=== PATIENT | male | born 1955 | race Caucasian/White ===

== ENCOUNTER 2017-08-02 09:00 | Day surgery (SDC) | payer OTHER ==
[~2017-08-02] VITALS: Ht 188 cm; Wt 77.4 kg
[~2017-08-02 09:00] MED LIST: METFORMIN DAILY; [UNRECOGNIZED DRUG - OTHER]
[2017-08-02] MEDS ORDERED: INSULIN ASPART [NOVOLOG] 3 ML PEN SC ONE ×2 (10:30→11:00)
[2017-08-02 10:36] VITALS: Ht 188 cm; Wt 77.4 kg
[2017-08-02] MEDS ORDERED: GLIPIZIDE PO (10:39)
[2017-08-02] MEDS ORDERED: ATORVASTATIN PO (10:39)
[2017-08-02] MEDS ORDERED: JANUVIA PO (10:39)
[2017-08-02 10:40] VITALS: BP 140/78; PULSE 65; RESP 25
[2017-08-02] MEDS ORDERED: GLUCOSE GEL 15 GRAM TUBE BUCCAL PRN (11:00)
[2017-08-02] MEDS ORDERED: DEXTROSE 50% 50 ML SYRINGE IV PRN ×2 (11:00)
[2017-08-02] MEDS ORDERED: GLUCOSE GEL 15 GRAM TUBE PO PRN ×2 (11:00)
[2017-08-02] MEDS ORDERED: GLUCAGON 1 MG INJ IM PRN (11:00)
--- NOTE | 2017-08-02 11:17 | OPPN ---
Date/Time of Note Date/Time of Note DATE: 08/02/17 TIME: 11:15 Operative Report Preoperative Diagnosis Screening Postoperative Diagnosis Poor prep making the exam suboptimal Internal hemorrhoids Operation/Procedure Performed Colonoscopy Surgeon see signature line assistive technology trainer None Anesthesia: MAC Estimated blood loss: none Transfusion Required none Specimen None Grafts/Implants none Complications none VINNY VO MD Aug 02, 2017 11:17
--- NOTE | 2017-08-02 11:17 | OPPN ---
Date/Time of Note Date/Time of Note DATE: 08/02/17 TIME: 11:15 Operative Report Preoperative Diagnosis Screening Postoperative Diagnosis Poor prep making the exam suboptimal Internal hemorrhoids Operation/Procedure Performed Colonoscopy Surgeon see signature line business development assistant None Anesthesia: MAC Estimated blood loss: none Transfusion Required none Specimen None Grafts/Implants none Complications none VINNY VO MD Aug 02, 2017 11:17
--- NOTE | 2017-08-02 11:17 | OPPN ---
Date/Time of Note Date/Time of Note DATE: 08/02/17 TIME: 11:15 Operative Report Preoperative Diagnosis Screening Postoperative Diagnosis Poor prep making the exam suboptimal Internal hemorrhoids Operation/Procedure Performed Colonoscopy Surgeon see signature line research program assistant None Anesthesia: MAC Estimated blood loss: none Transfusion Required none Specimen None Grafts/Implants none Complications none VINNY VO MD Aug 02, 2017 11:17
[2017-08-02 11:45] VITALS: BP 124/74; RESP 14
--- NOTE | 2017-08-03 08:39 | GILP ---
DATE OF PROCEDURE: NAME OF PROCEDURE: Colonoscopy. SURGEON: Vinny Mccullough MD. PREOPERATIVE DIAGNOSIS: Screening colonoscopy. POSTOPERATIVE DIAGNOSES: 1. Colonoscopy all the way to the cecum. 2. Poor prep making the exam suboptimal. 3. Internal hemorrhoids. 4. No gross neoplasm was identified. INDICATION FOR THE PROCEDURE: Mr. Sebas Mccurdy is a 61-year-old male patient who had a family hist ory of colon cancer. The patient also had a history of malignant colon polyps. Patient was schedul ed for screening colonoscopy. The procedure and possible complications are well explained to the patient. The patient understood and consented to the procedure. DESCRIPTION OF PROCEDURE: Under the influence of anesthesia, the colonoscope was carefully introduc ed in the rectum, and under direct vision, it was advanced all the way to the cecum. FINDINGS: The patient had poor prep making the exam suboptimal. The patient was noted to have inte rnal hemorrhoids. No gross neoplasm was identified. He tolerated the procedure very well and there was no complication from the procedure. At the end o f the procedure, he was awake with stable vital signs and he was discharged home to the care of his family. IMPRESSION: Please see postoperative diagnoses. PLAN: Because of the poor prep and suboptimal nature of the examination, the patient will need repe at colonoscopy with a better preparation in 2 years. Dictated By: VINNY BARR/IRWIN Conf#: [id number] DID#: [id number]
== END 2017-08-02 15:55 | disposition home or self-care (01) ==
LOC: GIL 09:00
PROVIDERS: ATTEND Internal Medicine Gastroenterology
DX: Z12.11 Encounter for screening for malignant neoplasm of colon (principal); K64.8 Other hemorrhoids; E11.9 Type 2 diabetes mellitus without complications
CPT/HCPCS: 45380; 82962; J1815

== ENCOUNTER 2018-07-23 16:00 | Emergency (ER) | END 2018-07-23 19:06 | disposition home or self-care (01) ==

== ENCOUNTER 2018-07-26 18:15 | Inpatient (IN) | END 2018-08-03 20:25 | disposition home health service (06) | DRG 623 ==